=== PATIENT | male | born 1995 | race Caucasian/White ===

== ENCOUNTER 2020-07-16 21:43 | Emergency (ER) | payer OTHER, BC ==
[~2020-07-16] VITALS: Ht 182.9 cm; Wt 112.0 kg
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
[2020-07-16] MEDS ORDERED: LITHIUM CARBON300 M2 PO (22:00)
[2020-07-16] MEDS ORDERED: ABILIFY5 MG PO (22:01)
== END 2020-07-17 01:40 | disposition home or self-care (01) ==
LOC: ED 21:43
DX: R22.0 Localized swelling, mass and lump, head (principal); Y04.8XXA Assault by other bodily force, initial encounter; D64.9 Anemia, unspecified; F31.9 Bipolar disorder, unspecified; F17.200 Nicotine dependence, unspecified, uncomplicated; Z88.5 Allergy status to narcotic agent; Z79.899 Other long term (current) drug therapy
CPT/HCPCS: 70160; 99284-25

== ENCOUNTER 2024-05-31 13:33 | Emergency (ER) | payer OTHER ==
[~2024-05-31] VITALS: Ht 182.9 cm; Wt 136.1 kg
[~2024-05-31 13:33] MED LIST: ABILIFY5 MG PO; LITHIUM CARBON300 M2 PO
[2024-05-31] MEDS ORDERED: HYDROCODON-ACE1 EA10 PO (16:21)
[2024-05-31] MEDS ORDERED: HYDROCODONE BIT/ACETAMINOPHEN 5/325 MG 1 TAB HOME.PACK PO PRN (16:30)
[2024-05-31 16:44] VITALS: BP 132/78
== END 2024-05-31 16:44 | disposition home or self-care (01) ==
LOC: ED 13:33
DX: S62.141A Displaced fracture of body of hamate [unciform] bone, right wrist, initial encounter for closed fracture (principal); S63.8X1A Sprain of other part of right wrist and hand, initial encounter; F17.200 Nicotine dependence, unspecified, uncomplicated; Z88.5 Allergy status to narcotic agent; Z79.899 Other long term (current) drug therapy; W50.0XXA Accidental hit or strike by another person, initial encounter; Y93.71 Activity, boxing
CPT/HCPCS: 29125; 73130; 99283; A9270

== ENCOUNTER 2024-07-03 12:11 | Emergency (ER) | payer OTHER ==
[~2024-07-03] VITALS: Ht 182.9 cm; Wt 130.0 kg
[~2024-07-03 12:11] MED LIST changes: +HYDROCODON-ACE1 EA10 PO
[2024-07-03] MEDS ORDERED: HALOPERIDOL5 MG PO (12:19)
[2024-07-03] MEDS ORDERED: VITAMIN D21250 MCG (12:19)
[2024-07-03] MEDS ORDERED: DIVALPROEX SOD500 MG PO (12:19)
[2024-07-03] MEDS ORDERED: SIMVASTATIN10 MG PO (12:19)
[2024-07-03] MEDS ORDERED: TRAZODONE HCL150 MG PO (12:19)
[2024-07-03] MEDS ORDERED: VRAYLAR4.5 MG PO (12:20)
[2024-07-03] MEDS ORDERED: LIDOCAINE/RACEPINEP/TETRACAINE 3 ML SYR TOP ONE (12:30)
[2024-07-03] MEDS ORDERED: IBUPROFEN 600 MG TAB PO ONE (12:30)
[2024-07-03] MEDS ORDERED: HYDROCODON-ACE1 EAC8 PO (13:22)
[2024-07-03] MEDS ORDERED: DIPHTH,PERTUSS(ACELL),TET VAC 0.5 ML SYRINGE IM ONE (13:30)
[2024-07-03 14:04] VITALS: BP 104/60
== END 2024-07-03 14:05 | disposition home or self-care (01) ==
LOC: ED 12:11
DX: S92.324A Nondisplaced fracture of second metatarsal bone, right foot, initial encounter for closed fracture (principal); S92.334A Nondisplaced fracture of third metatarsal bone, right foot, initial encounter for closed fracture; S92.344A Nondisplaced fracture of fourth metatarsal bone, right foot, initial encounter for closed fracture; F17.200 Nicotine dependence, unspecified, uncomplicated; Z88.5 Allergy status to narcotic agent; Z79.899 Other long term (current) drug therapy; W23.0XXA Caught, crushed, jammed, or pinched between moving objects, initial encounter
CPT/HCPCS: 73610; 73630; 90471; 90715; 99283-25; A9270

== ENCOUNTER 2024-07-24 21:42 | Emergency (ER) | payer OTHER ==
[~2024-07-24] VITALS: Ht 188 cm; Wt 140.0 kg
[~2024-07-24 21:42] MED LIST changes: +DIVALPROEX SOD500 MG PO; +HALOPERIDOL5 MG PO; +HYDROCODON-ACE1 EAC8 PO; +SIMVASTATIN10 MG PO; +TRAZODONE HCL150 MG PO; +VITAMIN D21250 MCG; +VRAYLAR4.5 MG PO
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
[2024-07-24 22:11] VITALS: BP 159/93
== END 2024-07-24 22:12 | disposition home or self-care (01) ==
LOC: ED 21:42
DX: T82.594A Other mechanical complication of infusion catheter, initial encounter (principal); Z88.5 Allergy status to narcotic agent
CPT/HCPCS: 99282

== ENCOUNTER 2024-08-03 19:43 | Emergency (ER) | payer OTHER ==
[~2024-08-03] VITALS: Ht 188 cm; Wt 139.0 kg
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
[2024-08-03 21:15] VITALS: BP 102/66
== END 2024-08-03 21:15 | disposition home or self-care (01) ==
LOC: ED 19:43
DX: Z48.89 Encounter for other specified surgical aftercare (principal); F43.10 Post-traumatic stress disorder, unspecified; F17.200 Nicotine dependence, unspecified, uncomplicated; Z79.899 Other long term (current) drug therapy; Z88.5 Allergy status to narcotic agent
CPT/HCPCS: 29505; 99283-25

== ENCOUNTER 2025-02-16 14:21 | Emergency (ER) | payer OTHER ==
[~2025-02-16] VITALS: Ht 188 cm; Wt 123.3 kg
--- OUTSIDE RECORDS SUMMARY | ~2025-02-16 | XMS | Continuity of Care Document ---
Demographics + + + | Address | [address] [place] [address] | | | [place] [address] | + + + | Preferred Language | Unknown | + + + | Marital Status | Never | + + + | Buddhism Affiliation | Unknown | + + + | Race | White | + + + | Ethnic Group | Not or | + + + Author + + + | Author | [facility] | + + + | Organization | [facility] | + + + | Address | [address] | | | [place] [address] | + + + | Phone | | + + + Care Team Providers + + + + | Care Application Security Developer Name | Role | Phone | + + + + Unavailable | Unavailable | + + + + Allergies No information. Encounters No information. Functional Status No information. Immunizations No information. Medications + + + + | date | description | facility | + + + + | (no date) | DIVALPROEX SODIUM | [facility] | | | | [facility] | + + + + | (no date) | Ergocalciferol (Vitamin | [facility] | | | D2) | [facility] | + + + + | (no date) | Cariprazine Hydrochloride | [facility] | | | | [facility] | + + + + | (no date) | HALOPERIDOL | [facility] | | | | [facility] | + + + + | (no date) | SIMVASTATIN | [facility] | | | | [facility] | + + + + | (no date) | ARIPIPRAZOLE | [facility] | | | | [facility] | + + + + | (no date) | TRAZODONE HCL | [facility] [place] [facility] | | | | [facility] | + + + + Problems No information. Procedures No information. Results/Labs No information. Social History +--------+ + + | date | description | facility | +--------+ + + Vital Signs No information."
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
[2025-02-16 16:00] LABS: BASOPHILS 0.4 % (0.2-1.2); EOSINOPHILS 0.3 % (0.8-7.0); LYMPHOCYTES 22.9 % (21.8-53.1); MCH 30.0 PG (25.7-32.2); MCHC 33.3 g/dL (32.3-36.5); MCV 90.3 fL (79.0-92.2); MONOCYTES 10.0 % (5.3-12.2); NEUTROPHILS 66.0 % (34.0-67.9); RBC 4.96 M/uL (4.63-6.08)
[2025-02-16 16:26] LABS: ALCOHOL, MEDICAL <3 ng/dL (<3); ALT (SGPT) 31 U/L (14-59); AST (SGOT) 8 U/L (15-37); GLOMERULAR FILTRATION RATE,EST 110 mL/min (>60); PROTEIN, TOTAL 8.1 g/dL (6.4-8.2); TSH, 3RD GENERATION 1.132 uIU/mL (0.358-3.740); UREA NITROGEN 12 mg/dL (7-18)
[2025-02-16] MEDS ORDERED: OLANZapine 10 MG TAB PO ONE (17:00)
[2025-02-16 17:10] LABS: BLOOD/HGB, URINE NEGATIVE (Negative); KETONE, URINE TRACE (Negative); LEUK ESTERASE, URINE NEGATIVE (negative); NITRITE, URINE NEGATIVE (negative)
[2025-02-16 17:21] LABS: AMPHETAMINES, URINE NEGATIVE (NEGATIVE); BARBITURATES, URINE NEGATIVE (NEGATIVE); BENZODIAZEPINE, URINE NEGATIVE (NEGATIVE); CANNABINOID, URINE POSITIVE (NEGATIVE); COCAINE, URINE NEGATIVE (NEGATIVE); ECSTASY, URINE POSITIVE (NEGATIVE); FENTANYL, URINE NEGATIVE (NEGATIVE); METHADONE, URINE NEGATIVE (NEGATIVE); OPIATES, URINE NEGATIVE (NEGATIVE); OXYCODONE, URINE NEGATIVE (NEGATIVE); PHENCYCLIDINE, URINE NEGATIVE (NEGATIVE)
[2025-02-16] MEDS ORDERED: NICOTINE POLACRILEX 4 MG LOZENGE BUCCAL PRN (18:45)
[2025-02-16] MEDS ORDERED: DIVALPROEX SODIUM 500 MG TABLET.DR PO SCH (21:00)
[2025-02-16] MEDS ORDERED: TRAZODONE HCL 50 MG TAB PO SCH (21:00)
[2025-02-16] MEDS ORDERED: OLANZapine 10 MG TAB PO SCH (21:00)
[2025-02-16] MEDS ORDERED: TRAZODONE HCL 100 MG TAB PO SCH (21:00)
[2025-02-17] MEDS ORDERED: ACETAMINOPHEN 500 MG TAB PO ONE (11:45)
[2025-02-17] MEDS ORDERED: HALOPERIDOL LACTATE 5 MG/ML VIAL IM ONE (13:00)
[2025-02-17] MEDS ORDERED: LORazepam 2 MG/ML VIAL IM ONE (13:00)
[2025-02-17] MEDS ORDERED: IBUPROFEN 600 MG TAB PO ONE (14:45)
[2025-02-18 07:30] VITALS: BP 151/89
== END 2025-02-18 07:40 ==
LOC: ED 14:21
PROVIDERS: Emergency Medicine
DX: F23 Brief psychotic disorder (principal); F25.9 Schizoaffective disorder, unspecified; F43.10 Post-traumatic stress disorder, unspecified; F17.200 Nicotine dependence, unspecified, uncomplicated; Z79.899 Other long term (current) drug therapy; Z88.5 Allergy status to narcotic agent
CPT/HCPCS: 36415; 70450; 80053; 80307; 81003; 84443; 85025; 96372; 99285-25; A9270; G0480; J1200; J1630; J2060